=== PATIENT | female | born 1995 ===

== ENCOUNTER 2018-08-22 12:09 | Emergency (ER) | payer OTHER ==
[2018-08-22 12:57] VITALS: TEMP 98.4
[2018-08-22] MEDS ORDERED: Sodium Chloride 0.9% 1,000 ML IV STA (13:18)
--- NOTE | 2018-08-22 13:20 | ED PDOC ---
HPI: Abdomen Time Seen by Provider: 08/22/18 13:14 Chief Complaint (Nursing): Abdominal Pain Chief Complaint (Provider): Abdominal Pain History Per: Patient History/Exam Limitations: no limitations Onset/Duration Of Symptoms: Other (This morning) Location Of Pain/Discomfort: RLQ Associated Symptoms: Fever, Nausea, Urinary Symptoms (dysuria). denies: Vomiting Additional Complaint(s): 22 y/o female presents to ER for evaluation of right lower quadrant abdominal pain associated with nausea since this morning. Patient reports she had dysuria and denies any vomiting, diarrhea or fever. LNMP: 08/18/18 PMD: None provided Past Medical History Reviewed: Historical Data, Nursing Documentation, Vital Signs Vital Signs: Last Vital Signs Temp 98.4 F 08/22/18 12:56 Pulse 100 H 08/22/18 12:56 Resp 20 08/22/18 12:56 BP 127/63 08/22/18 12:56 Pulse Ox 99 08/22/18 12:56 - Medical History PMH: No Chronic Diseases - Surgical History Surgical History: No Surg Hx - Family History Family History: States: Unknown Family Hx - Social History Current smoker - smoking cessation education provided: No Alcohol: None Drugs: Denies - Home Medications Home Medications: Ambulatory Orders Medication Instructions Recorded Famotidine [Pepcid] 20 mg PO DAILY PRN #6 tab 08/22/18 - Allergies Allergies/Adverse Reactions: Allergies Allergy/AdvReac Type Severity Reaction Status Date / Time No Known Allergies Allergy Verified 08/22/18 12:56 Review of Systems ROS Statement: Except As Marked, All Systems Reviewed And Found Negative Constitutional: Negative for: Fever Gastrointestinal: Positive for: Nausea, Abdominal Pain (RLQ). Negative for: Vomiting, Diarrhea Genitourinary Female: Positive for: Dysuria Physical Exam - Reviewed Nursing Documentation Reviewed: Yes - Physical Exam Appears: Positive for: Well, No Acute Distress Head Exam: Positive for: ATRAUMATIC, NORMOCEPHALIC Skin: Positive for: Normal Color, Warm, Dry Cardiovascular/Chest: Positive for: Regular Rate, Rhythm. Negative for: Murmur Respiratory: Positive for: Normal Breath Sounds. Negative for: Respiratory Distress Gastrointestinal/Abdominal: Positive for: Tenderness (RLQ). Negative for: Rebound Neurologic/Psych: Positive for: Alert, Oriented (x3) - Laboratory Results Result Diagrams: 08/22/18 13:25 08/22/18 13:25 - ECG O2 Sat by Pulse Oximetry: 99 (RA) Pulse Ox Interpretation: Normal Medical Decision Making Medical Decision Makin --Considering appendicitis vs. [employer] pathology --Will do blood work with imaging of CT abdomen Scribe Attestation: Documented by Yvette John, acting as a scribe for Brent Garcia MD. Provider Scribe Attestation: All medical record entries made by the Scribe were at my direction and personally dictated by me. I have reviewed the chart and agree that the record accurately reflects my personal performance of the history, physical exam, medical decision making, and the department course for this patient. I have also personally directed, reviewed, and agree with the discharge instructions and disposition. Disposition - Clinical Impression Clinical Impression: Abdominal pain, Hypokalemia - Patient ED Disposition Is Patient to be Admitted: Transfer of Care - Disposition Referrals: [facility] [Outside] - 08/24/18 Disposition: Routine/Home Disposition Time: 15:00 Condition: STABLE Additional Instructions: Return if not better in 3 days. Prescriptions: Famotidine [Pepcid] 20 mg PO DAILY PRN #6 tab PRN Reason: Pain Instructions: Hypokalemia, Stomach Ache and Stomach Upset Print Language: UZBEK Patient Signed Over To: Mikel Baldwin
[2018-08-22 13:38] LABS: BASO % 0.4 % (0.0-2.0); EOS % 0.3 % (0.0-4.0); LYMPH # 1.1 K/uL (1.0-4.3); LYMPH % 10.4 % (20.0-40.0); MEAN CELL VOLUME 79.9 fl (81.0-99.0); MEAN CORPUSCULAR HGB CONC 33.8 g/dL (33.0-37.0); MEAN PLATELET VOLUME 8.6 fl (7.2-11.7); MONO # 0.4 K/uL (0.0-0.8); MONO % 4.4 % (0.0-10.0); NEUT # 8.6 K/uL (1.8-7.0); NEUT % 84.5 % (50.0-75.0); RBC 5.18 Mil/uL (3.80-5.20); RED CELL DISTRIBUTION WIDTH 14.5 % (11.5-14.5); WHITE BLOOD COUNT 10.2 K/uL (4.8-10.8)
[2018-08-22 13:52] LABS: ALB/GLOB RATIO 1.3 (1.0-2.1); ALBUMIN 4.5 g/dL (3.5-5.0); ALT/SGPT 38 U/L (9-52); AST/SGOT 22 U/L (14-36); BLOOD UREA NITROGEN 15 mg/dl (7-17); CALCIUM 9.7 mg/dL (8.4-10.2); GFR NON-AFRICAN AMERICAN > 60
[2018-08-22] MEDS ORDERED: Iohexol 300 100 ML IJ ONE (14:00)
[2018-08-22] MEDS ORDERED: Sodium Chloride 0.9% 50 ML IV ONE (14:01)
--- NOTE | 2018-08-22 15:31 | ED PDOC ---
- Laboratory Results Result Diagrams: 08/22/18 13:25 08/22/18 13:25 Lab Results: Total Bilirubin 0.1 mg/dl (0.2-1.3) L 08/22/18 13:25 AST 22 U/L (14-36) 08/22/18 13:25 ALT 38 U/L (9-52) 08/22/18 13:25 Alkaline Phosphatase 95 U/L (38-126) 08/22/18 13:25 Total Protein 8.0 G/DL (6.3-8.2) 08/22/18 13:25 Albumin 4.5 g/dL (3.5-5.0) 08/22/18 13:25 Globulin 3.4 gm/dL (2.2-3.9) 08/22/18 13:25 Albumin/Globulin Ratio 1.3 (1.0-2.1) 08/22/18 13:25 Interpretation Of Abn Labs: 3.5 k - ECG O2 Sat by Pulse Oximetry: 99 (RA) Pulse Ox Interpretation: Normal - CT Scan/US ct Other Rad Studies (CT/US): Read By Radiologist Other Rad Interpretation: no acute - Progress ED Course And Treament: 1531: Stable. AAOx3. Fu on ct. Took over care from Dr. Garcia. 1638: Stable. AAOx3. Pain free. Abd nontender. Tolerated PO well. Fu with pcp. Disposition Counseled Patient/Family Regarding: Studies Performed, Diagnosis, Need For Followup, Rx Given - Clinical Impression Clinical Impression: Abdominal pain, Hypokalemia - POA Present On Arrival: None - Disposition Referrals: [facility] [Outside] - 08/24/18 Disposition: Routine/Home Disposition Time: 16:40 Condition: STABLE Additional Instructions: Return if not better in 3 days. Prescriptions: Famotidine [Pepcid] 20 mg PO DAILY PRN #6 tab PRN Reason: Pain Instructions: Stomach Ache and Stomach Upset, Hypokalemia Print Language: SYRIAC
[2018-08-22] MEDS ORDERED: Potassium Chloride 20 mEq ER Tab PO STA (15:32)
--- NOTE | 2018-08-22 15:51 | CT ---
Date of service: 08/22/2018 PROCEDURE: CT Abdomen and Pelvis with contrast HISTORY: Abd pain COMPARISON: None. TECHNIQUE: Following the intravenous administration of iodinated contrast material, a CT examination of the abdomen and pelvis performed from the domes of the diaphragms to the symphysis pubis with reformatted datasets provided in axial, sagittal and coronal planes. Oral contrast was not administered as per referring physician request. Coronal and sagittal reformats were generated. Contrast dose: Omnipaque 300, 95 cc Radiation dose: Total exam DLP = 840.67 mGy-cm. This CT exam was performed using one or more of the following dose reduction techniques: Automated exposure control, adjustment of the mA and/or kV according to patient size, and/or use of iterative reconstruction technique. FINDINGS: LOWER THORAX: Unremarkable. LIVER: Unremarkable. No gross lesion or ductal dilatation. GALLBLADDER AND BILE DUCTS: Unremarkable. PANCREAS: Unremarkable. No gross lesion or ductal dilatation. SPLEEN: Unremarkable. ADRENALS: Unremarkable. No mass. KIDNEYS AND URETERS: Unremarkable. No hydronephrosis. No solid mass. VASCULATURE: Unremarkable. No aortic aneurysm. No aortic atherosclerotic calcification or mural plaque present. BOWEL: Scattered moderate fecal loading is seen in various large-bowel segments without obstruction. Small bowel is largely collapsed. Stomach is only mildly distended with retained food and fluid. No pericolic or perienteric reactive change throughout. APPENDIX: Normal appendix. PERITONEUM: Unremarkable. No free fluid. No free air. LYMPH NODES: Unremarkable. No enlarged lymph nodes. BLADDER: Unremarkable. REPRODUCTIVE: Unremarkable. BONES: No acute fracture. OTHER FINDINGS: None. IMPRESSION: No acute abdominal or pelvic findings by standard CT criteria.
[2018-08-22] MEDS ORDERED: Potassium Chloride 20 mEq ER Tab PO ONE (16:44)
[2018-08-22 17:10] VITALS: BP 114/58; PULSE 90; RESP 16
[2018-08-23 07:24] VITALS: O2SAT 99
== END 2018-08-22 17:11 | disposition home or self-care (01) ==
LOC: H.ER 12:09
DX: R10.9 Unspecified abdominal pain (principal); E87.6 Hypokalemia
CPT/HCPCS: 74177; 80053; 81025; 85025; 96374; 99283; J1885; J7030; Q9967

== ENCOUNTER 2018-11-29 12:06 | Emergency (ER) | payer OTHER ==
--- NOTE | 2018-11-29 12:38 | ED PDOC ---
HPI: General Adult Time Seen by Provider: 11/29/18 12:25 Chief Complaint (Nursing): Flu-like Symptoms Chief Complaint (Provider): flu-like symptoms History Per: Patient History/Exam Limitations: no limitations Onset/Duration Of Symptoms: Days (2x) Current Symptoms Are (Timing): Still Present Severity: Moderate Additional Complaint(s): 23 year old female with no pertinent past medical history presents to the ED for an evaluation of a non-productive cough ongoing for 2x days. Patient reports having an associated fever, and notes having dysuria. Patient denies having vomiting, diarrhea, having a sore throat, or taking medications prior to arrival. PMD: None providedd Past Medical History Reviewed: Historical Data, Nursing Documentation, Vital Signs Vital Signs: Last Vital Signs Temp 102.9 F H 11/29/18 12:09 Pulse 106 H 11/29/18 12:09 Resp 16 11/29/18 12:09 BP 129/75 11/29/18 12:09 Pulse Ox 99 11/29/18 12:09 SHADY Report Viewed: Yes - Medical History PMH: No Chronic Diseases - Surgical History Other surgeries: nose surgery - Family History Family History: States: No Known Family Hx - Social History Current smoker - smoking cessation education provided: No Alcohol: None Drugs: Denies - Home Medications Home Medications: Ambulatory Orders Medication Instructions Recorded Famotidine [Pepcid] 20 mg PO DAILY PRN #6 tab 08/22/18 Acetaminophen [Acetaminophen Extra 2 tab PO Q6 PRN #24 tablet 11/29/18 Strength] Ciprofloxacin HCl [Cipro] 500 mg PO BID #14 tablet 11/29/18 Ibuprofen [Motrin] 600 mg PO Q8 PRN #21 tab 11/29/18 Oseltamivir Cap [Tamiflu] 75 mg PO BID #9 cap 11/29/18 - Allergies Allergies/Adverse Reactions: Allergies Allergy/AdvReac Type Severity Reaction Status Date / Time No Known Allergies Allergy Verified 08/22/18 12:56 Review of Systems ROS Statement: Except As Marked, All Systems Reviewed And Found Negative Constitutional: Positive for: Fever ENT: Negative for: Throat Pain Respiratory: Positive for: Cough (non-productive) Gastrointestinal: Negative for: Vomiting, Diarrhea Genitourinary Female: Positive for: Dysuria Physical Exam - Reviewed Nursing Documentation Reviewed: Yes Vital Signs Reviewed: Yes - Physical Exam Appears: Positive for: Well, Non-toxic, No Acute Distress Head Exam: Positive for: ATRAUMATIC, NORMOCEPHALIC Skin: Positive for: Normal Color, Warm, Dry Eye Exam: Positive for: Normal appearance ENT: Positive for: Pharyngeal Erythema (mild) Cardiovascular/Chest: Positive for: Regular Rate, Rhythm Respiratory: Positive for: Normal Breath Sounds Gastrointestinal/Abdominal: Positive for: Normal Exam, Soft, Tenderness Back: Positive for: Normal Inspection. Negative for: L CVA Tenderness, R CVA Tenderness Neurological/Psych: Positive for: Awake, Alert, Oriented (3x) - Laboratory Results Urine POC: Negative Urine dip results: Positive for: Leukocyte Esterase, Blood, Nitrate. Negative for: Ketones, Glucose, Bilirubin, Protein - ECG O2 Sat by Pulse Oximetry: 99 (RA) Pulse Ox Interpretation: Normal - Progress ED Course And Treament: FLU A/B NEG RAPID STREP NEG REPEAT TEMP 99.8 Medical Decision Making Medical Decision Makin:25 Initial impression: 23 year old female with a cough and fever Initial plan: * upreg * udip * influenza AB * rapid strep * motrin tab 800 mg PO * tamiflu cap 75 mg PO * tylenol 325 mg tab 975 mg PO * reevaluation Scribe Attestation: Documented by Hoa Fink, acting as a scribe for Payotn Campoverde PA-C. Provider Scribe Attestation: All medical record entries made by the Scribe were at my direction and personally dictated by me. I have reviewed the chart and agree that the record accurately reflects my personal performance of the history, physical exam, medical decision making, and the department course for this patient. I have also personally directed, reviewed, and agree with the discharge instructions and disposition. Disposition - Clinical Impression Clinical Impression: Influenza-like symptoms, UTI (urinary tract infection) - Patient ED Disposition Is Patient to be Admitted: No - Disposition Disposition: Routine/Home Disposition Time: 13:18 Condition: FAIR Prescriptions: Acetaminophen [Acetaminophen Extra Strength] 2 tab PO Q6 PRN #24 tablet PRN Reason: Fever >100.4 F Ciprofloxacin HCl [Cipro] 500 mg PO BID #14 tablet Ibuprofen [Motrin] 600 mg PO Q8 PRN #21 tab PRN Reason: Fever >100.4 F Oseltamivir Cap [Tamiflu] 75 mg PO BID #9 cap Instructions: Urinary Tract Infections in Adults, Flu, Adult (DC) Forms: [facility] ED School/Work Excuse Print Language: GREEK
[2018-11-29 13:24] VITALS: BP 115/65; PULSE 91; RESP 18
[2018-11-29 13:34] LABS: SQUAMOUS EPITHIAL 2 /hpf (0-5); URINE BACTERIA FEW (<OCC); URINE BILIRUBIN NEGATIVE (NEGATIVE); URINE BLOOD LARGE (NEGATIVE); URINE CLARITY CLOUDY (Clear); URINE COLOR YELLOW (YELLOW); URINE GLUCOSE (UA) NEG (NEGATIVE); URINE LEUKOCYTE ESTERASE MOD Leu/uL (Negative); URINE PROTEIN 30 mg/dL (NEGATIVE); URINE UROBILINOGEN 0.2-1.0 mg/dL (0.2-1.0)
[2018-11-29 13:52] VITALS: TEMP 99.8
[2018-11-29 23:10] VITALS: O2SAT 99
== END 2018-11-29 13:54 | disposition home or self-care (01) ==
LOC: H.ER 12:06
DX: N39.0 Urinary tract infection, site not specified (principal); J11.1 Influenza due to unidentified influenza virus with other respiratory manifestations